=== PATIENT | female | born 1995 | race Two or more races ===

== ENCOUNTER 2022-04-30 08:00 | Outpatient (CLI) | payer OTHER ==
[~2022-04-30 08:00] MED LIST: DICLOFENAC SODI75 MG PO; MUCINEX DM ER1 EAC1 PO; ZITHROMAX500 MG PO
== END 2022-04-30 08:05 | disposition home or self-care (01) ==
LOC: PPH VACUNA 08:00
PROVIDERS: ATTEND Emergency Medicine Pediatric Emergency Medicine
DX: Z23 Encounter for immunization (principal)

== ENCOUNTER 2022-08-23 16:20 | Emergency (ER) | payer OTHER ==
[~2022-08-23] VITALS: Ht 167.6 cm; Wt 90.7 kg
== END 2022-08-23 20:35 | disposition home or self-care (01) ==
LOC: ER 16:20
DX: M94.0 Chondrocostal junction syndrome [Tietze] (principal)

== ENCOUNTER 2023-01-07 17:15 | Emergency (ER) | payer OTHER ==
[~2023-01-07] VITALS: Ht 170.2 cm; Wt 99.8 kg
== END 2023-01-07 19:15 | disposition home or self-care (01) ==
LOC: ER 17:15
DX: R05.9 Cough, unspecified (principal); Z20.822 Contact with and (suspected) exposure to COVID-19

== ENCOUNTER 2024-04-02 12:39 | Emergency (ER) | payer OTHER ==
[~2024-04-02] VITALS: Ht 172.7 cm; Wt 108.9 kg
[2024-04-02] MEDS ORDERED: ONDANSETRON HCL 2 MG/ML VIAL ONE (13:08)
[2024-04-02] MEDS ORDERED: FAMOTIDINE/PF 20 MG/2 ML VIAL ONE (13:08)
[2024-04-02] MEDS ORDERED: FAMOtidine 10 MG/ML (4ML VIAL) IV ONE (13:15)
[2024-04-02] MEDS ORDERED: ONDANSETRON HCL 2 MG/ML VIAL IV ONE (13:15)
[2024-04-02] MEDS ORDERED: 0.9 % SODIUM CHLORIDE 1,000 ML IV ONE (13:15)
[2024-04-02 13:36] LABS: HEMATOCRIT 32.4 % (36.0-45.00); HEMOGLOBIN 10.7 g/dL (12.0-15.00); MEAN CELL VOLUME 79.5 fL (80.00-100.00); MEAN CORPUSCULAR HEMOGLOBIN 26.2 pg (27.00-32.0); PLATELET COUNT 238 K/uL (150-450); RED BLOOD COUNT 4.08 M/uL (4.00-6.00)
[2024-04-02 13:47] LABS: RED CELL DISTRIBUTION WIDTH 17.9 % (11.5-14.5)
[2024-04-02 14:15] LABS: ALBUMIN 3.7 gm/dL (3.4-5.0); ALKALINE PHOSPHATASE 132 U/L (50-136); ALT/SGPT 22 U/L (12-78); AMYLASE 46 U/L (25-115); ANION GAP 10 (10.0-20.0); AST/SGOT 21 U/L (15-37); BILIRUBIN TOTAL 0.38 mg/dL (0.3-1.2); BLOOD UREA NITROGEN 11 mg/dL (7-18); BUN CREA RATIO 15 (7.0-25.0); CARBON DIOXIDE 28 mEq/L (21-32); CHLORIDE 105 mmol/L (98-107); CREATININE SERUM 0.75 mg/dL (0.55-1.02); GFR 92.01; GLOBULINA 4.4 G/DL (2.4-3.5); GLUCOSE FASTING 94 mg/dL (65-100); LIPASE 30 U/L (13-75); OSMOLALITY SERUM 277 MOSM/KG (275-295); POTASSIUM 3.89 mEq/L (3.5-5.1); SODIUM 139 mmol/L (136-145); TOTAL PROTEIN 8.1 gm/dL (6.4-8.2)
[2024-04-02 14:32] LABS: HCG QUANTITATIVE < 1 mUI/mL (1-3)
[2024-04-02] MEDS ORDERED: ZOFRAN8 MG PO (14:46)
[2024-04-02] MEDS ORDERED: PEPCID AC20 MG PO (14:46)
== END 2024-04-02 14:54 | disposition home or self-care (01) ==
LOC: ER 12:41
PROVIDERS: General Practice
DX: K52.9 Noninfective gastroenteritis and colitis, unspecified (principal); R11.10 Vomiting, unspecified